=== PATIENT | male | born 1995 | race Caucasian/White ===

== ENCOUNTER 2016-05-24 12:31 | Emergency (ER) | payer OTHER ==
[~2016-05-24] VITALS: Ht 165.1 cm; Wt 106.9 kg
[~2016-05-24 12:31] MED LIST: CNC/27 PO
[2016-05-24 12:44] VITALS: TEMP 37; Ht 165.1 cm; Wt 106.9 kg
[2016-05-24] MEDS ORDERED: IBUPROFEN 600 MG TAB PO STA (12:57)
--- NOTE | 2016-05-24 13:02 | EMERGENCY ROOM VISIT NOTE ---
ED Visit Note First contact with patient: 12:53 CHIEF COMPLAINT: Toothache HISTORY OF PRESENT ILLNESS: This 20-year-old male presents to the ER with chief complaint of tooth pain. The patient states that he has had progressively worsening tooth pain in his #7 tooth. The patient denies any pain of the gums or any swelling of the gums. He denies any facial pain or fever. The patient states that he had similar symptoms 5 years ago when his aunt gave him some antibiotics which took away the pain. He has not taken anything this time for pain. He has not tried to contact a dentist. REVIEW OF SYSTEMS: 6 system review was performed and was negative unless stated otherwise in history of present illness. PMH: The patient is healthy; there is no significant medical or surgical history. SOCIAL HISTORY: Patient lives with his dad. The patient denies any tobacco or alcohol use. GENERAL: 20-year-old white male appears in no acute distress. MOUTH: The #7 tooth with tenderness to percussion. Gingiva without erythema or edema. No palpable abscess noted FACE: No erythema or swelling noted. NECK: Supple, no lymphadenopathy noted. No carotid bruits noted. LUNGS: Clear auscultation without wheezes rales or rhonchi. CARDIAC: Regular rate and rhythm without murmur.. Pulses is full and equal throughout. EMERGENCY COURSE: The patient was given Motrin 600 mg by mouth for pain. The patient was discharged home in stable condition. DIAGNOSIS: Dentalgia DISCHARGE INSTRUCTIONS & TREATMENT: Ibuprofen 6 mg every 6 hours with food for pain. Take amoxicillin as prescribed. Appointment with a dentist for definitive care of your tooth pain. Problem List Medical Problems: (1) Attention deficit hyperactivity disorder Status: Chronic Current/Historical Medications Scheduled Methylphenidate Hcl (Concerta), 27 MG PO DAILY Allergies Coded Allergies: No Known Allergies (Unverified , 01/06/12) Vital Signs Date Time Temp Pulse Resp B/P Pulse Ox O2 Delivery O2 Flow Rate FiO2 05/24/16 12:44 37.0 86 18 140/93 96 Room Air Departure Information Referrals No Doctor, Assigned (PCP) Patient Instructions [facility]
[2016-05-24] MEDS ORDERED: AMOX500C3 PO (13:03)
[2016-05-24 13:27] VITALS: BP 127/81; PULSE 65; O2SAT 98
== END 2016-05-24 13:29 | disposition home or self-care (01) ==
LOC: C.EDB 12:33 → C.EDD 13:29
DX: K08.89 Other specified disorders of teeth and supporting structures (principal); F90.9 Attention-deficit hyperactivity disorder, unspecified type; Z79.899 Other long term (current) drug therapy

== ENCOUNTER 2016-05-27 16:56 | Emergency (ER) | payer OTHER ==
[~2016-05-27] VITALS: Ht 165.1 cm; Wt 100.4 kg
[~2016-05-27 16:56] MED LIST changes: +AMOX500C3 PO
[2016-05-27 17:04] VITALS: TEMP 36.9; Ht 165.1 cm; Wt 100.4 kg
[2016-05-27] MEDS ORDERED: IBUP-1050 PO (17:18)
[2016-05-27] MEDS ORDERED: AMOX875T PO (17:27)
[2016-05-27] MEDS ORDERED: AMOXICIL/CLAVU 875MG HOME PACK PO ONE (17:30)
[2016-05-27 17:46] VITALS: BP 138/78; PULSE 80; O2SAT 99
--- NOTE | 2016-05-27 21:52 | EMERGENCY ROOM VISIT NOTE ---
ED Visit Note First contact with patient: 17:11 CHIEF COMPLAINT: Toothache HISTORY OF PRESENT ILLNESS: This 20-year-old male patient presented to the emergency department with a progressive toothache for past several days. The patient was seen and evaluated in this department about 3 days ago with his complaint. He was started on antibiotics, and states his symptoms have worsened. The patient believes it is coming from the right upper incisor. The pain is now steady and severe and radiates to the face. The patient does not have a dentist appointment set up. They rate their pain a 10/10 and the ibuprofen and Tylenol they have been taking has not relieved the pain. Denies facial swelling or fever. The patient denies any discharge from the mouth. REVIEW OF SYSTEMS: A 6 system review of systems was completed with positives and pertinent negatives listed in the HPI. ALLERGIES: No known allergies MEDICATIONS: No chronic medications PMH: Otherwise healthy SOCIAL HISTORY: Lives locally PHYSICAL EXAM: Vitals are noted on the nurse's note and reviewed by myself. Vital signs stable. GENERAL: Male, in no acute distress, nondiaphoretic, well-developed well- nourished. Mouth: The right upper #7 tooth is tender around it, without any discharge or signs of an abscess. The remainder of the pharynx and tonsils are without erythema, edema, or exudate. The airway is patent. There is no facial swelling , cervical or submandibular lymphadenopathy. The patient appears uncomfortable and in pain. The patient has overall fair dental hygiene. EARS: External auditory canals clear, tympanic membranes pearly hamilton without erythema or effusion bilaterally. HEART: Regular rate and rhythm without murmur gallop or rub LUNG: Clear to auscultation bilateral ED COURSE: Physical exam and history were performed. Nursing notes and EMR were reviewed. The patient has dental pain for the past several days. He has not contacted or established with a dentist. I explained that the emergency department is unable to provide dental services. I will change the patient's antibiotic to Augmentin and recommended that he use Orajel [id number]. The patient does not appear toxic, and is without facial swelling. He was invited back to the ER with any new, worsening, or concerning symptoms. Problem List Medical Problems: (1) Attention deficit hyperactivity disorder Status: Chronic Current/Historical Medications Scheduled Amoxicillin (Amoxil), 500 MG PO TID Amoxicillin & Pot Clavulanate (Augmentin 875-125 mg), 1 TAB PO BID Scheduled PRN Ibuprofen (Advil), 1,000 MG PO Q2-3HRS PRN for Pain Allergies Coded Allergies: No Known Allergies (Unverified , 01/06/12) Vital Signs Date Time Temp Pulse Resp B/P Pulse Ox O2 Delivery O2 Flow Rate FiO2 05/27/16 17:46 80 20 138/78 99 05/27/16 17:04 36.9 100 20 147/96 98 Room Air Medications Administered Medications (Trade) Dose Ordered Sig/Josef Route Start Time Stop Time Status Last Admin Dose Admin Amoxicillin/ Clavulanate Potassium (Augmentin 875MG Home Pack) 1 homepack UD ONCE PO 05/27/16 17:30 05/27/16 17:31 DC 05/27/16 17:41 1 HOMEPACK Departure Information Impression Primary Impression: Pain, dental Dispostion Home / Self-Care Condition GOOD Prescriptions Amoxicillin & Pot Clavulanate (Augmentin 875-125 mg) 1 Tab Tab 1 TAB PO BID for 9 Days, #18 TAB Prov: Floyd Cardenas PA-C 05/27/16 Forms HOME CARE DOCUMENTATION FORM, IMPORTANT VISIT INFORMATION Patient Instructions [facility] Additional Instructions You were seen and evaluated today on an emergency basis only. This is not a substitute for, or an effort to provide, complete comprehensive medical care. It is not possible to recognize and treat all injuries or illnesses in a single emergency department visit. For this reason it is recommended that you followup with a dentist as soon as possible for definitive care. The emergency department is not able to provide dental services. For baseline pain relief you may alternate ibuprofen and acetaminophen every 4 hours for pain control. Take 600 mg ibuprofen (Advil) and then 4 hours later take 1000 mg acetaminophen (Tylenol). Do not take more than 3000 mg acetaminophen in a single day. Consider [id number] Orajel. Discontinue your Amoxil. Amoxicillin Clavulanate (Augmentin) 875mg: Take one pill twice daily for 10 total days for your infection. All antibiotics can cause diarrhea. If this occurs and you feel worse or it does not resolve in 1-2 days follow up with your doctor or return to the Emergency Department as this could be signs of serious underlying problems. Any medication can cause an allergic reaction, stop the pills immediately and return to the ER for rash, hives, breathing difficulties, or swelling. You are welcome to return to the emergency department anytime with new, worsening, or concerning symptoms.
== END 2016-05-27 17:48 | disposition home or self-care (01) ==
LOC: C.EDB 16:57 → C.EDD 17:48
DX: K08.89 Other specified disorders of teeth and supporting structures (principal); F90.9 Attention-deficit hyperactivity disorder, unspecified type

== ENCOUNTER 2020-06-13 11:29 | Inpatient (IN) ==
[2020-06-13] MEDS ORDERED: ACETAMINOPHEN 1,000 MG/100 ML VIAL IV STA (12:07)
[2020-06-13] MEDS ORDERED: SODIUM CHLORIDE 0.9% 1000ML 1,000 ML IV SCH ×2 (12:15→18:15)
[2020-06-13 12:40] LABS: Basophils # (auto) 0.02 K/uL (0-0.2); Basophils % (auto) 0.2 %; Eosinophils # (auto) 0.11 K/uL (0-0.5); Eosinophils % (auto) 0.9 %; Hematocrit (blood only) 33.9 % (42-52); Hemoglobin 12.1 g/dL (14.0-18.0); Immature Granulocytes # (auto) 0.04 K/uL (0.00-0.02); Immature Granulocytes % (auto) 0.3 %; Lymphocytes # (auto) 1.45 K/uL (1.2-3.4); Lymphocytes % (auto) 11.9 %; Mean Corpuscular Hemoglobin 27.9 pg (25-34); Mean Corpuscular Hgb Conc 35.7 g/dL (32-36); Mean Corpuscular Volume 78.3 fL (80-100); Monocytes % (auto) 9.8 %; Neutrophils # (auto) 9.41 K/uL (1.4-6.5); Neutrophils % (auto) 76.9 %; Platelet Count 334 K/uL (130-400); RDW Coefficient of Variation 12.4 % (11.5-14.5); RDW Standard Deviation 35.7 fL (36.4-46.3); Red Blood Count 4.33 M/uL (4.7-6.1); White Blood Count 12.23 K/uL (4.8-10.8)
[2020-06-13 12:56] LABS: Alanine Aminotransferase 44 U/L (12-78); Albumin Level 3.3 gm/dl (3.4-5.0); Aspartate Aminotransferase 52 U/L (15-37); BUN Creatinine Ratio 10.1 (10-20); Blood Urea Nitrogen 10 mg/dl (7-18); Calcium 8.8 mg/dl (8.5-10.1); Carbon Dioxide 28 mmol/L (21-32); Chloride 103 mmol/L (98-107); Creatinine Clr Calc Pharmacy 136.9 ml/min; Est GFR (African American) 125.9; Est GFR (Non-African American) 108.7; Glucose 106 mg/dl (70-99); Magnesium 1.9 mg/dl (1.8-2.4); Potassium 3.7 mmol/L (3.5-5.1); Sodium 136 mmol/L (136-145)
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
[2020-06-13 13:00] LABS: Partial Thromboplastin Ratio 0.9; Partial Thromboplastin Time 23.1 Seconds (21.0-31.0)
[2020-06-13 13:01] LABS: Albumin Globulin Ratio 0.8 (0.9-2); Alkaline Phosphatase 60 U/L (45-117); Bilirubin,Total 0.9 mg/dl (0.2-1); Globulin 4.4 gm/dl (2.5-4.0); Total Protein 7.7 gm/dl (6.4-8.2); Troponin I < 0.015 ng/ml (0-0.045)
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
[2020-06-13 13:10] LABS: Appearance Urine Clear (Clear); Bilirubin Urine Negative (Negative); Blood Urine Negative (Negative); Color Urine Yellow; Glucose Urine UA Negative (Negative); Ketones Urine Negative (Negative); Leukocyte Esterase Urine Negative (Negative); Nitrite Urine Negative (Negative); Protein Urine Negative (Negative); Specific Gravity Urine 1.016 (1.000-1.030); Urobilinogen Urine Negative (Negative); pH Urine 7.5 (4.5-7.5)
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
--- NOTE | 2020-06-13 14:46 | Electrocardiogram Report ---
Test Reason : Blood Pressure : / mmHG Vent. Rate : 087 BPM Atrial Rate : 087 BPM P-R Int : 134 ms QRS Dur : 084 ms QT Int : 342 ms P-R-T Axes : 032 003 024 degrees QTc Int : 411 ms Normal sinus rhythm Nonspecific T wave abnormality Abnormal ECG When compared with ECG of 08-JUN-2020 16:37, No significant change was found Confirmed by Fahad Vee ([id number]) on 06/13/2020 2:45:51 PM Referred By: REFERRED SELF Confirmed By:Fahad Vee
[2020-06-13] MEDS ORDERED: oxyCODONE HCL IR 5 MG TAB (IMMEDIATE RELEASE) PO STA (18:08)
[2020-06-13] MEDS ORDERED: SULFAMETHOXAZOLE/TRIMETHOPRIM DS 800/160MG TAB PO ONE (18:15)
[2020-06-13] MEDS ORDERED: cefTRIAXone SODIUM 2,000 MG/70 ML BAG IV STA (18:15)
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
[2020-06-13] MEDS ORDERED: HYDROmorphone INJ 0.5 MG/0.5 ML SYR IV STA (19:08)
[2020-06-13 20:42] LABS: Influenza A virus by PCR Negative (Neg); Influenza B virus by PCR Negative (Neg); RSV by PCR Negative (Neg); SARS CoV2 RNA(COVID-19) InHosp NEGATIVE (Negative)
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
[2020-06-13] MEDS ORDERED: ONDANSETRON INJ 2 MG/ML 2 ML VIAL IV PRN (23:35)
[2020-06-13] MEDS ORDERED: VANCOMYCIN CONSULT ACTIVE PRN (23:35)
[2020-06-14] MEDS ORDERED: VANCOMYCIN HCL 2,750 MG in SODIUM CHLORIDE 0.9% 500 ML IV ONE (00:15)
[2020-06-14] MEDS: ENOXAPARIN INJ 30 MG/0.3 ML SYR SQ SCH ×3 (00:38→21:09)
[2020-06-14] MEDS: HYDROmorphone INJ 0.5 MG/0.5 ML SYR IV PRN ×2 (00:38→08:52)
[2020-06-14] MEDS: ACETAMINOPHEN 500 MG TAB PO PRN ×2 (00:39→19:37)
[2020-06-14] MEDS: POLYETHYLENE (MIRALAX) 17 GM PACK PO SCH ×3 (00:39→21:09)
[2020-06-14] MEDS: NSS + 20MEQ KCL 20 MEQ/1,000 ML BAG IV SCH ×3 (00:40→21:06)
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
[2020-06-14] MEDS ORDERED: oxyCODONE HCL IR 5 MG TAB (IMMEDIATE RELEASE) PO PRN (06:07)
[2020-06-14] MEDS: oxyCODONE HCL IR 5 MG TAB (IMMEDIATE RELEASE) PO PRN (06:20)
[2020-06-14 06:58] LABS: Hematocrit (blood only) 32.4 % (42-52); Mean Corpuscular Hemoglobin 27.2 pg (25-34); Mean Platelet Volume 8.9 fL (7.4-10.4); Platelet Count 250 K/uL (130-400); RDW Coefficient of Variation 12.5 % (11.5-14.5); RDW Standard Deviation 36.5 fL (36.4-46.3); Red Blood Count 4.05 M/uL (4.7-6.1); White Blood Count 8.16 K/uL (4.8-10.8)
[2020-06-14 07:26] LABS: BUN Creatinine Ratio 11.3 (10-20); Calcium 8.4 mg/dl (8.5-10.1); Creatinine Clr Calc Pharmacy 158.3 ml/min; Est GFR (African American) 140.7; Est GFR (Non-African American) 121.4; Potassium 3.9 mmol/L (3.5-5.1)
[2020-06-14 07:29] LABS: C Reactive Protein 9.68 mg/dl (0-0.29)
[2020-06-14] MEDS: DOCUSATE SODIUM/SENNA 50/8.6MG TAB PO SCH (08:47)
[2020-06-14] MEDS ORDERED: KETOROLAC TROMETHAMINE 10 MG TABLET PO PRN (09:50)
[2020-06-14] MEDS: VANCOMYCIN HCL 1,500 MG in SODIUM CHLORIDE 0.9% 500 ML IV SCH ×2 (10:26→18:02)
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
[2020-06-14] MEDS: cefTRIAXone SODIUM 2,000 MG in DEXTROSE 5% 50 ML IV SCH (17:24)
[2020-06-14] MEDS: KETOROLAC TROMETHAMINE 10 MG TABLET PO PRN (18:01)
[2020-06-15] MEDS: VANCOMYCIN HCL 1,500 MG in SODIUM CHLORIDE 0.9% 500 ML IV SCH (02:34)
[2020-06-15] MEDS: NSS + 20MEQ KCL 20 MEQ/1,000 ML BAG IV SCH (05:15)
[2020-06-15] MEDS ORDERED: OPTIRAY 320 100ml IV ONE (06:13)
[2020-06-15] MEDS: ACETAMINOPHEN 500 MG TAB PO PRN ×2 (06:36→22:29)
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
[2020-06-15] MEDS: ENOXAPARIN INJ 30 MG/0.3 ML SYR SQ SCH ×2 (08:37→19:53)
[2020-06-15] MEDS: DOCUSATE SODIUM/SENNA 50/8.6MG TAB PO SCH (08:38)
[2020-06-15] MEDS: CHOLECALCIFEROL 1,000 UNITS 25 MCG TAB PO SCH (08:38)
[2020-06-15] MEDS: POLYETHYLENE (MIRALAX) 17 GM PACK PO SCH ×2 (08:38→19:52)
[2020-06-15] MEDS: KETOROLAC TROMETHAMINE 10 MG TABLET PO PRN (08:39)
[2020-06-15] MEDS ORDERED: VANCOMYCIN TROUGH ONE (09:30)
[2020-06-15 10:08] LABS: Hematocrit (blood only) 31.9 % (42-52); Hemoglobin 10.7 g/dL (14.0-18.0); Mean Corpuscular Hemoglobin 26.8 pg (25-34); Mean Corpuscular Hgb Conc 33.5 g/dL (32-36); Mean Corpuscular Volume 79.9 fL (80-100); Mean Platelet Volume 9.1 fL (7.4-10.4); Platelet Count 293 K/uL (130-400); RDW Coefficient of Variation 12.5 % (11.5-14.5); RDW Standard Deviation 36.4 fL (36.4-46.3); Red Blood Count 3.99 M/uL (4.7-6.1); White Blood Count 9.47 K/uL (4.8-10.8)
[2020-06-15] MEDS: VANCOMYCIN HCL 1,750 MG in SODIUM CHLORIDE 0.9% 500 ML IV SCH ×2 (11:03→19:17)
[2020-06-15] MEDS ORDERED: ETHYL CHLORIDE AER SPR 100 ML CAN EXT STA (14:13)
[2020-06-15] MEDS ORDERED: LORazepam 1 MG/2 ML VIAL IV STA (15:12)
[2020-06-15] MEDS ORDERED: MoRPHine SULFATE 4 MG/ML 1 ML CARP\\VIAL IV STA (15:13)
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
--- NOTE | 2020-06-15 16:12 | Orthopedic Progress Note ---
Date of Service June 15, 2020 Assessment & Plan (1) S/P ORIF (open reduction internal fixation) fracture: Fever - r/o right knee joint infection. Patient as noted agreed to knee aspiration. Morphine sulfate and Ativan were given IV per Dr. Jimenez. We waited several minutes for this to take effect. At that time, a superior lateral aspiration site was chosen and cleansed with 2 alcohol swabs and 3 Betadine swabs and let the dry. Ethyl chloride was used for skin anesthesia. 18-gauge spinal needle was then inserted into the supra patellar pouch. I was able to aspirate 20 cc of bloody fluid. It did not appear purulent. Needle was removed and a 4 x 4 gauze was placed on the aspir ation site and pressure was applied. Armen wrap was then placed around the knee at this time. Aspirate was sent for cell count and culture. Patient tolerated the aspiration well. Admission and Anticipated Discharge Date Admission Date: June 13, 2020 Subjective I was contacted by Dr. Jimenez this afternoon. Patient's white count was normalizing however his ESR and CRP were trending upwards. She had discussed the case with the patient's surgeon in [place]. They were requesting an aspiration of the knee joint to rule out infection. I discussed this with Dr. Laughlin who felt this was appropriate. The patient was very hesitant to have his knee aspirated however with the help of Dr. Jimenez, we discussed that it would help us determine if infection was indeed coming from his knee since other areas had been ruled out. Patient agreed to have the knee aspirated and plans were to give him some pain medication and some antianxiety medication prior to the aspiration. Physical Exam Physical Exam: Knee immobilizer was removed. 2 incisions that the patient has on his knee laterally and also on the anterior portion of the knee appeared benign. No erythema no drainage. His knee does have an effusion but was not tense. I could palpate his knee without causing him discomfort. Patient states that he was actually able to bend his knee slightly this morning without discom fort and that he had put a little bit of weight on it which to him felt good. The knee does feel a bit warmer to the touch than the left knee. He did have a little bit of swelling going up the back of his thigh and was mildly tender on palpation. Calf was soft and nontender. Results & Data ([facility]) Vital Signs (Past 12 Hours) Vital Signs Temp Pulse Pulse Resp BP Pulse Ox 06/15/20 15:00 37.1 C 102 H 18 127/82 99 06/15/20 11:55 36.7 C 75 16 123/80 97 06/15/20 07:50 105 H 06/15/20 07:28 38.3 C H 104 H 16 108/63 95
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
[2020-06-15 17:02] LABS: Appearance Synovial Fluid TURBID; Color Synovial Fluid RED; Mononuclear WBC Synovial 67.7 %; Polynuclear WBC Synovial 32.3 %; RBC Synovial Fluid (A) 444000 /uL; Source Synovial Fluid KNEE; WBC Synovial Fluid (A) 1388 /ul (0-200)
[2020-06-15] MEDS: cefTRIAXone SODIUM 2,000 MG in DEXTROSE 5% 50 ML IV SCH (18:04)
[2020-06-15] MEDS: oxyCODONE HCL IR 5 MG TAB (IMMEDIATE RELEASE) PO PRN (19:55)
[2020-06-16] MEDS: VANCOMYCIN HCL 1,750 MG in SODIUM CHLORIDE 0.9% 500 ML IV SCH (02:37)
[2020-06-16] MEDS: KETOROLAC TROMETHAMINE 10 MG TABLET PO PRN ×2 (03:57→15:49)
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
[2020-06-16 08:19] LABS: Hematocrit (blood only) 34.4 % (42-52); Hemoglobin 11.4 g/dL (14.0-18.0); Mean Corpuscular Hemoglobin 26.8 pg (25-34); Mean Corpuscular Hgb Conc 33.1 g/dL (32-36); Mean Corpuscular Volume 80.8 fL (80-100); Mean Platelet Volume 8.9 fL (7.4-10.4); Platelet Count 333 K/uL (130-400); RDW Coefficient of Variation 12.8 % (11.5-14.5); RDW Standard Deviation 37.5 fL (36.4-46.3); Red Blood Count 4.26 M/uL (4.7-6.1); White Blood Count 8.68 K/uL (4.8-10.8)
[2020-06-16] MEDS: CHOLECALCIFEROL 1,000 UNITS 25 MCG TAB PO SCH (08:23)
[2020-06-16] MEDS: ENOXAPARIN INJ 30 MG/0.3 ML SYR SQ SCH (08:24)
[2020-06-16] MEDS: POLYETHYLENE (MIRALAX) 17 GM PACK PO SCH (10:03)
[2020-06-16] MEDS: DOCUSATE SODIUM/SENNA 50/8.6MG TAB PO SCH (10:03)
[2020-06-16] MEDS ORDERED: VANCOMYCIN TROUGH ONE (10:30)
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
[2020-06-16] MEDS ORDERED: VANCOMYCIN HCL 2,000 MG in SODIUM CHLORIDE 0.9% 500 ML IV SCH (12:00)
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
[2020-06-17] MEDS ORDERED: VANCOMYCIN TROUGH ONE (11:30)
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
== END 2020-06-16 16:43 | disposition home health service (06) | DRG 871 ==
LOC: ED 11:29 → 2W 19:33 → SUATTDRO 19:33 → 2W 22:43